=== PATIENT | female | born 2000 | race Caucasian/White ===

== ENCOUNTER 2019-06-06 21:58 | Emergency (ER) | payer OTHER ==
[~2019-06-06] VITALS: Ht 157.5 cm; Wt 106.4 kg
[2019-06-06] MEDS ORDERED: AMOX TR/POT CLAV 875 MG/125 MG TABLET PO ONE (23:00)
[2019-06-06 23:09] VITALS: BP 134/81
== END 2019-06-06 23:09 | disposition home or self-care (01) ==
LOC: EMS 22:00
DX: H60.92 Unspecified otitis externa, left ear (principal)